=== PATIENT | female | born 1995 | race Caucasian/White ===

== ENCOUNTER 2023-05-05 11:53 | Inpatient (IN) | payer BC ==
[2023-05-05 12:36] LABS: APPEARANCE,URINE CLEAR; BILIRUBIN,URINE NEGATIVE (NEGATIVE); COLOR,URINE YELLOW; GLUCOSE,URINE NEGATIVE (NEGATIVE); KETONES,URINE NEGATIVE (NEGATIVE); LEUKOCYTE ESTERASE,URINE TRACE (NEGATIVE); NITRITE,URINE NEGATIVE (NEGATIVE); OCCULT BLOOD,URINE NEGATIVE (NEGATIVE); PH,URINE 5.5 (5.0-8.0); PROTEIN,URINE NEGATIVE (NEGATIVE); UROBILINOGEN,URINE 0.2 EU/dL (<2.0)
[2023-05-05 12:47] LABS: BASOPHILS ABSOLUTE AUTO 0.04 K/uL (0.00-0.20); BASOPHILS PERCENT AUTO 0.3 % (0.0-1.0); EOSINOPHILS ABSOLUTE AUTO 0.04 K/uL (0.00-0.45); EOSINOPHILS PERCENT AUTO 0.3 % (0.0-6.0); HEMATOCRIT 31.8 % (37.0-47.0); HEMOGLOBIN 10.8 g/dL (12.0-16.0); IMMATURE GRAN PERCENT AUTO 0.9 % (0.0-0.4); LYMPHOCYTES ABSOLUTE AUTO 1.71 K/uL (1.00-4.80); LYMPHOCYTES PERCENT AUTO 14.8 % (24.0-44.0); MEAN CORPUSCULAR HEMOGLOBIN 27.4 pg (28.0-32.0); MEAN CORPUSCULAR VOLUME 80.7 fL (83.0-99.0); MEAN PLATELET VOLUME 10.9 fL (9.4-12.3); MONOCYTES ABSOLUTE AUTO 0.73 K/uL (0.00-0.80); MONOCYTES PERCENT AUTO 6.3 % (0.0-8.0); NEUTROPHILS ABSOLUTE AUTO 8.93 K/uL (1.80-7.70); NEUTROPHILS PERCENT AUTO 77.4 % (41.0-71.0); PLATELET COUNT,PLT 242 K/uL (150-400); RED BLOOD CELL COUNT 3.94 M/uL (4.10-5.30); WHITE BLOOD CELL COUNT,WBC 11.55 K/uL (3.9-11.3)
[2023-05-05 12:52] LABS: CREATININE,URINE RAND 19.5 mg/dL; PROTEIN,URINE RANDOM < 6.0 mg/dL (<11.9)
[2023-05-05 13:12] LABS: A/G RATIO 0.7 (0.9-1.6); ALBUMIN 2.6 g/dL (3.4-5.0); BILIRUBIN TOTAL 0.5 mg/dL (0.2-1.0); CARBON DIOXIDE,CO2 25.2 mmol/L (21.0-32.0); CREATININE 0.6 mg/dL (0.6-1.0); EST CRCL DRUG DOSING (CG) 121.62 mL/min; POTASSIUM,K 3.5 mmol/L (3.5-5.1); PROTEIN TOTAL,TP 6.5 g/dL (6.4-8.2); URIC ACID 4.5 mg/dL (2.6-7.2)
[2023-05-05] MEDS ORDERED: Sodium Chloride 0.9% 20 ML SDV IV PRN (15:24)
[2023-05-05] MEDS ORDERED: Sodium Chloride 0.9% 2.5 ML Syringe FLUSH PRN (15:24)
[2023-05-05] MEDS ORDERED: Tranexamic Acid IN NACL,ISO-OS 1,000 MG in Premix Bag 1 BAG IV PRN (15:24)
[2023-05-05] MEDS ORDERED: Carboprost Tromethamine 250 MCG/1 mL Vial IM PRN (15:24)
[2023-05-05] MEDS ORDERED: Methylergonovine 0.2 MG/1 ML Amp IM PRN (15:24)
[2023-05-05] MEDS ORDERED: Lidocaine 1% 50 ML MDV INJECT PRN (15:24)
[2023-05-05] MEDS ORDERED: Water For Irrigation,Sterile 1,000 ML Container IRR PRN (15:24)
[2023-05-05] MEDS ORDERED: Sodium Chloride 0.9% 10 ML Syringe FLUSH PRN (15:24)
[2023-05-05] MEDS ORDERED: Misoprostol 200 MCG Tab PO PRN (15:24)
[2023-05-05] MEDS ORDERED: Terbutaline 1 MG/ML SDV SUBCUT PRN (15:24)
[2023-05-05] MEDS ORDERED: Oxytocin/0.9 % Sodium Chloride 30 UNIT/500 ML BAG IV SCH (15:30)
[2023-05-05] MEDS ORDERED: ePHEDrine 50 MG/ML SDV IVPUSH PRN ×2 (16:11)
[2023-05-05] MEDS ORDERED: Phenylephrine HCl 0.5 MG/5 ML AMP IVPUSH PRN (16:11)
[2023-05-06] MEDS: Dinoprostone 10 MG Insert VAG ONE (10:28)
[2023-05-06] MEDS: Nalbuphine 10 MG/0.5 ML Syringe IVPUSH PRN (20:43)
[2023-05-06] MEDS: Lactated Ringers 1,000 ML IV SCH (21:17)
[2023-05-06] MEDS: Ropivacaine HCl/PF 400 MG in Premix Bag 1 BAG EPIDUR SCH (22:42)
[2023-05-07] MEDS: Ondansetron 4 MG/2 ML SDV IVPUSH PRN (00:46)
[2023-05-07] MEDS: Oxytocin/0.9 % Sodium Chloride 30 UNIT/500 ML BAG IV SCH (09:15)
[2023-05-07] MEDS ORDERED: Lidocaine 2% with EPINEPHrine 1:200,000 20 ML SDV ONE (13:26)
[2023-05-07] MEDS ORDERED: fentaNYL 100 MCG/2 ML SDV ONE (13:26)
[2023-05-07] MEDS ORDERED: Bupivacaine 0.25% 10 ML SDV ONE (13:26)
[2023-05-07] MEDS ORDERED: Citric Acid/Sodium Citrate Solution 30 ML Cup PO ONE (13:44)
[2023-05-07] MEDS: Citric Acid/Sodium Citrate Solution 30 ML Cup ONE (13:46)
[2023-05-07] MEDS ORDERED: Tranexamic Acid IN NACL,ISO-OS 1,000 MG in Premix Bag 1 BAG IV PRN (14:17)
[2023-05-07] MEDS ORDERED: Lanolin 100% Cream 7 GM Tube TOP PRN (14:17)
[2023-05-07] MEDS ORDERED: Methylergonovine 0.2 MG/1 ML Amp IM PRN (14:17)
[2023-05-07 14:40] LABS: PH,UMBILICAL ARTERIAL 7.315 (7.18-7.38); PH,UMBILICAL VENOUS 7.321 (7.25-7.45)
[2023-05-07] MEDS: Ibuprofen 800 MG Tab PO PRN (15:57)
[2023-05-07] MEDS: Witch Hazel Medicated Pads 40/Jar TOP PRN (15:57)
[2023-05-07] MEDS: Benzocaine/Menthol 20%-0.5% Spray 78 GM Cannister TOP PRN (15:57)
[2023-05-07] MEDS: Acetaminophen 500 MG Tab PO PRN (15:58)
[2023-05-07] MEDS: Docusate Sodium 100 MG Cap PO PRN (21:15)
[2023-05-08 06:45] LABS: HEMATOCRIT 29.4 % (37.0-47.0); HEMOGLOBIN 10.3 g/dL (12.0-16.0)
== END 2023-05-08 17:15 | disposition home or self-care (01) | DRG 560 ==
LOC: MW.OBCHECK 11:53 → MW.OB 11:54 → MW.OBCHECK 12:01 → MW.LAB 15:59 → MW.OB 15:59 → MW.OBCHECK 16:00 → MW.OB 16:00 → OBSVTOIN 05-07 13:50 → MW.OB 05-07 16:37
PROVIDERS: ADMIT Obstetrics & Gynecology; ATTEND Obstetrics & Gynecology
PROC: 10E0XZZ Delivery of Products of Conception, External Approach (ICD-10-PCS; principal; 2023-05-07)
PROC: 0UQMXZZ Repair Vulva, External Approach (ICD-10-PCS; 2023-05-07)
PROC: 0UQGXZZ Repair Vagina, External Approach (ICD-10-PCS; 2023-05-07)
DX: O42.02 Full-term premature rupture of membranes, onset of labor within 24 hours of rupture (principal); O70.0 First degree perineal laceration during delivery; O77.0 Labor and delivery complicated by meconium in amniotic fluid; O71.4 Obstetric high vaginal laceration alone; Z3A.38 38 weeks gestation of pregnancy; Z37.0 Single live birth
CPT/HCPCS: 01967; 36415; 51702; 59025; 59409; 76805; 76805-26; 80053; 81003; 82570; 82803; 84156; 84550; 85014; 85018; 85025; 86592; 86850; 86900; 86901; A9270-GY; J2300; J2405; J2590; J2795; J3010; J3490; J7120